=== PATIENT | male | born 2005 | race Caucasian/White ===

== ENCOUNTER 2023-02-28 20:24 | Emergency (ER) | payer OTHER, SELFPAY ==
[2023-02-28 20:28] VITALS: BP 141/91; PULSE 97; RESP 18; TEMP 36.6; O2SAT 99
--- NOTE | 2023-02-28 20:45 | ED_ITS ---
HPI - General Adult General Chief complaint: Eye Problems Stated complaint: Something in R eye, irritated Time Seen by Provider: 02/28/23 20:28 History of Present Illness HPI narrative: This 17-year-old male comes in with injury to his right eye. He states he was working with a [employer] and thinks that something got into his right eye. He does not have much discomfort except when he tries to open his eye. He is otherwise in good health. Related Data Home Medications Medication Instructions Recorded Confirmed No Known Home Medications 02/28/23 02/28/23 Allergies Allergy/AdvReac Type Severity Reaction Status Date / Time No Known Drug Allergies Allergy Verified 02/28/23 20:31 Review of Systems Status of ROS: Reports: 10 or more systems reviewed and unremarkable except as noted in History and below Narrative: Constitutional: No fevers, no weight gain or loss. Eyes: No discharge. No vision changes. Right eye pain as described above. HENT: No congestion, no sore throat, no ear pain. Cardiovascular: No chest pain, no palpitations. Respiratory: No shortness of breath, no wheezes, no cough. Gastrointestinal: No abdominal pain, no vomiting, no diarrhea. Genitourinary: No dysuria, no hematuria. Musculoskeletal: Normal range of motion. Skin: No rashes, no pruritis. Neurological: No dizziness, weakness, sensory change, speech change. Endo/Heme/Allergies: No bruising or bleeding. No polydipsia. Pysch: no suicidality, no anxiety, no insomnia. All other systems reviewed and are negative. Exam Narrative: Exam Narrative: Constitutional: Well-developed, well-nourished, no acute distress. HEENT: Normocephalic, atraumatic. Right eye is examined under magnification after tetracaine for anesthesia. No sign of foreign object and no obvious sign of abrasion or laceration. Neck: Normal range of motion. Nontender. Supple. Heart: Intact distal pulses. Lungs: No chest discomfort. No wheezes, rhonchi, or rales. Abdomen: Nontender. Back: Normal range of motion. Extremities: Normal range of motion. No injury. Skin: Intact. No rash. Warm. No erythema or pallor. Neurologic: No altered sensation. No weakness. Alert and oriented. Psychiatric: No suicidality. No anxiety or depression. No insomnia. Nursing notes and vitals signs are reviewed. Const: Vital Signs, click to edit/add: Vital Signs - 24 hr 02/28/23 20:28 Temperature 97.8 F Pulse Rate [Right Pulse Oximeter] 97 Respiratory Rate 18 Blood Pressure [Le ft Upper Arm] 141/91 H Pulse Oximetry 99 Oxygen Delivery Me thod Room Air Course Vital Signs Vital signs: Initial Vital Signs Temperature 97.8 F 02/28/23 20:28 Temperature Source Temporal Artery Scan 02/28/23 20:28 Pulse Rate 97 02/28/23 20:28 Pulse Rhythm Regular 02/28/23 20:28 Respiratory Rate 18 02/28/23 20:28 Blood Pressure 141/91 H 02/28/23 20:28 Blood Pressure Mean 107 H 02/28/23 20:28 Blood Pressure Position Sitting 02/28/23 20:28 Pulse Oximetry 99 02/28/23 20:28 Oxygen Delivery Method Room Air 02/28/23 20:28 Vital Signs Temperature 97.8 F 02/28/23 20:28 Pulse Rate 97 02/28/23 20:28 Respiratory Rate 18 02/28/23 20:28 Blood Pressure 141/91 H 02/28/23 20:28 Pulse Oximetry 99 02/28/23 20:28 Oxygen Delivery Method Room Air 02/28/23 20:28 Temperature 97.8 F 02/28/23 20:28 Pulse Rate 97 02/28/23 20:28 Respiratory Rate 18 02/28/23 20:28 Blood Pressure 141/91 H 02/28/23 20:28 Pulse Oximetry 99 02/28/23 20:28 Oxygen Delivery Method Room Air 02/28/23 20:28 Medical Decision Making [facility] Narrative Medical decision making narrative: This patient has injury to his right eye that seems worse when opening his eye. After tetracaine was given to the right eye I was able to examine it without any discomfort. I did so under magnification and saw no evidence of foreign object or obvious abrasion. I did discuss floor seen dye under black light illumination which the patient declined. He did receive a prescription for flurbiprofen ophthalmic solution for symptomatic relief. Discharge Plan Discharge Clinical Impression: Corneal abrasion Patient Disposition: Home, Self-Care Condition: Stable Additional Instructions: Use medication as needed and directed. Follow up with MD or return if worsening. Prescriptions: No Action No Known Home Medications Stand Alone Forms: [employer] Info Instructions
== END 2023-02-28 21:02 | disposition home or self-care (01) ==
LOC: ED 21:02
PROVIDERS: Emergency Provider Emergency Medicine Emergency Medical Services
DX: S05.01XA Injury of conjunctiva and corneal abrasion without foreign body, right eye, initial encounter (principal)
CPT/HCPCS: 99283; 99284; A9270